=== PATIENT | male | born 1985 | race Caucasian/White ===

== ENCOUNTER 2025-03-19 15:42 | Emergency (ER) | payer BC ==
[2025-03-19] MEDS: Lidocaine 1% with EPINEPHrine 1:100,000 10 ML MDV INJECT ONE (16:01)
[2025-03-19] MEDS: Bacitracin/Neomycin/Polymyxin B Oint 0.9 GM U/D Packet TOP ONE (16:16)
[2025-03-19] MEDS: Diphtheria,Pertussis(Acell),Tetanus Vaccine 0.5 ML Syringe IM ONE (16:16)
== END 2025-03-19 16:30 | disposition home or self-care (01) ==
LOC: CC.ED 15:42
DX: S60.552A Superficial foreign body of left hand, initial encounter (principal); Z23 Encounter for immunization; W45.8XXA Other foreign body or object entering through skin, initial encounter; Y93.89 Activity, other specified
CPT/HCPCS: 90471; 90715; 99283-25; A9270-GY